=== PATIENT | male | born 1995 | race Caucasian/White ===

== ENCOUNTER 2025-01-11 00:31 | Emergency (ER) | payer MEDICAID, SELFPAY ==
--- NOTE | ~2025-01-11 | XR_ITS ---
Portable chest x-ray Comparison: None Clinical History: Painful inspiration Findings: Lungs are clear, without focal consolidation or pleural effusion. Cardiomediastinal silho uette is unremarkable. Bones and soft tissues are unremarkable. Impression: Normal chest. Reviewed, dictated and finalized at location M. Impression: Normal chest.
[2025-01-11 00:37] VITALS: BP 131/95; PULSE 89; RESP 18; TEMP 35.9; O2SAT 99
--- NOTE | 2025-01-11 00:52 | ED_ITS ---
HPI - URI/Sore Throat General Chief Complaint: Upper Respiratory Infection Stated Complaint: uri Time Seen by Provider: 01/11/25 00:34 Source: patient Mode of arrival: ambulatory Limitations: no limitations History of Present Illness HPI Narrative: this is a 29-year-old male smoker presents with cough congestion slight last 2 weeks with no fever chills has been out of his albuterol inhaler. There is no chest pain no nausea vomiting no abdominal pain. MD elicited complaint: cough and nasal congestion Onset (ago): week(s) Review of Systems Review of Systems: All systems reviewed & are unremarkable except as noted in HPI and below PMFSH Past Medical History Medical History Asthma Exam Const: General: healthy appearing and no acute distress Nutritional Appearance: well nourished Orientation/consciousness: patient oriented x3 Limitations: no limitations HENMT: Head: normal to inspection Eyes: Conjunctivae: conjunctivae normal Pupils: Equal, round and reactive pupils present Chest: Chest palpation & inspection: normal inspection of the chest Resp: Effort & Inspection: normal respiratory effort Auscultation: clear to auscultation bilaterally Cardio: Rate: regular rate Rhythm: regular rhythm GI: GI Palp: Yes Soft to palpation Auscultation: normal bowel sounds Extrem: General: normal to inspection, no clubbing, cyanosis or edema and no pedal edema Course Course Emergency Course: chest x-ray performed and reviewed without any cardiopulmonary abnormalities COVID influenza and RSV also performed and reviewed with patient. Patient given a dose of Augmentin and prednisone. Vital Signs Vital signs: Vital Signs Temperature 35.9 C L 01/11/25 00:37 Pulse Rate 89 01/11/25 00:37 Respiratory Rate 18 01/11/25 00:37 Blood Pressure 131/95 H 01/11/25 00:37 Pulse Oximetry 99 01/11/25 00:37 Oxygen Delivery Room Air 01/11/25 00:37 Temperature 35.9 C L 01/11/25 00:37 Pulse Rate 89 01/11/25 00:37 Respiratory Rate 18 01/11/25 00:37 Blood Pressure 131/95 H 01/11/25 00:37 Pulse Oximetry 99 01/11/25 00:37 Oxygen Delivery Room Air 01/11/25 00:37 MDM - URI/Sore Throat Lab Data Labs: Lab Results 01/11/25 Range/Units 00:38 Influenza A (RT-PCR) Pending Influenza B (RT-PCR) Pending RSV (RT-PCR) Pending SARS-CoV-2 RNA (RT-PCR) Pending Critical Care Time Critical Care Time Critical Care Time: No Discharge Plan Discharge Clinical Impression: Bronchitis Patient Disposition: Home, Self-Care Condition: Stable Instructions: Antibiotic Form, Acute Bronchitis (ED) Additional Instructions: Advised patient to take medication as prescribed and follow-up with primary care physician if symptoms persist or worsen. Patient Language: Macedonian Prescriptions: New azithromycin [Zithromax Z-Holland] 250 mg tablet See Rx Instructions .ROUTE .COMPLEX Qty: 6 0RF Rx Instructions: For 250 mg dose pack: take 500 mg today (day 1), then 250 mg for 4 days (days 2-5) ProAir RespiClick 90 mcg/actuation aerosol powdr breath activated 2 inh inhalation QID PRN (Reason: shortness of breath) Qty: 1 0RF methylprednisolone [Medrol ([place])] 4 mg tablets,dose pack See Rx Instructions .ROUTE .COMPLEX Qty: 21 0RF Rx Instructions: for 6 days Follow-up/Referrals: Ahmet Davenport MD [Primary Care Provider] - Time of Disposition: 00:57
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
--- OUTSIDE RECORDS SUMMARY | 2025-01-11 00:52 | XMS_ITS | Encounter Summary ---
Author Organization [employer] Address [address] [place] [address] Care Team Providers Care Panel Fitter Name Role Phone Claudine Harris MD Primary Care Provider [phone] Encounter Details Date Type Department Care Team (Late st Contact Info) Description 04/09/2021 Transcribed Document [facility] [place] Family Medicine [facility] [place] [address] ProviderSivakumar MD [address] [place] [address] Social History Tobacco Use Types Packs/Day Years Used Date Smoking Tobacco: Never Assessed Sex and Gender Information Value Date Recorded Sex Assigned at Male 04/20/2022 8:52 PM CDT Legal Sex Male 8:52 PM CDT Gender Identity Male 04/20/2022 8:52 PM CDT Sexual Orientation Not on file documented as of this encounter Miscellaneous Notes * Cerner Conversion Note - Historical ProviderMD - 04/09/2021 4:18 PM CDT CR Scapula RT Ordered: 04/08/2021 Auth (Verified) Reason for Exam: pain 04/08/2021 21:41 CR Elbow Min 3 Vws RT Ordered: 04/08/2021 Auth (Verified) Reason for Exam: pain 04/08/2021 21:42 CR Shoulder Comp Min 2 Vws RT Ordered: 04/08/2021 Auth (Verified) Reason for Exam: pain 04/08/2021 21:41 04/09/2021 16:18 (CONOR MACIEL) No further action required Electronically signed by [facility] Conversion Clinical Applications Manager Cerner at 02/08/2023 9:03 PM CDT documented in this encounter Plan of Treatment Not on file documented as of this encounter Visit Diagnoses Not on filedocumented in this encounter Care Teams Panel Fitter Relationship Specialty Start Date End Date Claudine Harris MD [address] [place] [address] PCP - General Psychiatry 03/06/24 documented as of this encounter
--- OUTSIDE RECORDS SUMMARY | 2025-01-11 00:52 | XMS_ITS | Encounter Summary ---
Author Organization [employer] Address [address] [place] [address] Care Team Providers Care Service Order Dispatcher Name Role Phone Claudine Harris MD Primary Care Provider [phone] Encounter Details Date Type Department Care Team (Late st Contact Info) Description 09/25/2021 Transcribed Document [facility] [place] Family Medicine [address] [place] [address] ProviderSivakumar MD [address] [place] [address] Social History Tobacco Use Types [...] Conversion Note - Sivakumar ProviderMD - 09/25/2021 3:43 AM SCRUB WOMAN ED Assessment Entered On: 09/25/2021 4:14 EST Performed On: 09/25/2021 4:13 EST by Yu Méndez Rn ED General-Functional Assess Information Obtained From : Patient Communication Barrier : None Primary Language : Guyanese Any Spiritual/Cultural Needs or Requests : No Currently in Unsafe Situation : No Yu Méndez Rn - 09/25/2021 4:13 EST Social Habits Smoking Status : Other: unable to assess Smokeless Tobacco Status : Never Yu Méndez Rn - 09/25/2021 4:13 EST Social History (As Of: 09/25/2021 04:14:59 EST) Cardiovascular ASMT, ED Cardiovascular Assessment WDL : WDL with exceptions (Comment: pt c/o chest pain but refusing ekg and assessment [Yu Méndez Rn - 09/25/2021 4:13 EST] ) Yu Méndez Rn - 09/25/2021 4:13 EST Electronically signed by [facility] Conversion Intervention Specialist Cerner at 02/08/2023 9:11 PM CDT documented in this encounter Plan of Treatment Not on file documented as of this encounter Visit Diagnoses Not on filedocumented in this encounter Care Teams Service Order Dispatcher Relationship Specialty Start Date End Date Claudine Harris MD [address] [place] [address] PCP - General Psychiatry 03/06/24 documented as of this encounter
--- OUTSIDE RECORDS SUMMARY | 2025-01-11 00:52 | XMS_ITS | Encounter Summary ---
Author Organization [employer] Address [address] [place] [address] Care Team Providers Care Incinerator Plant General Supervisor Name Role Phone Claudine Harris MD Primary Care Provider [phone] Encounter Details Date Type Department Care Team (Late st Contact Info) Description 04/08/2021 Transcribed Document [facility] [place] Family Medicine [facility] [place] [address] ProviderSivakumar MD [address] [place] [address] Social History Tobacco Use Types [...] Conversion Note - Sivakumar ProviderMD - 04/08/2021 5:12 PM CDT ED Assessment Entered On: 04/08/2021 17:33 EDT Performed On: 04/08/2021 17:32 EDT by Julia Kinney RN ED Quick Look Assessment Level of Consciousness : Alert, Awake Affect/Behavior : Appropriate Orientation : Oriented x 4 Skin Temperature : Warm Skin Description : Normal for ethnicity Julia Kinney RN - 04/08/2021 17:32 EDT ED General-Functional Assess Information Obtained From : Patient Communication Barrier : None Primary Language : Stateless Any Spiritual/Cultural Needs or Requests : No Currently in Unsafe Situation : No Julia Kinney RN - 04/08/2021 17:32 EDT Social Habits Smoking Status : Never (less than 100 in lifetime; none in last 30 days) Smokeless Tobacco Status : Never Desires Tobacco Cessation Calc : 0 Julia Kinney RN - 04/08/2021 17:32 EDT Social History (As Of: 04/08/2021 17:33:04 EDT) Genitourinary Assessment, ED Genitourinary Assessment WDL : WDL with exceptions (Comment: left shoulder pain with full rom, no obvious deformity noted [Julia Kinney RN - 04/08/2021 17:32 EDT] ) Julia Kinney RN - 04/08/2021 17:32 EDT Electronically signed by [facility], [facility] Conversion Nutrition Services Assistant Cerner at 02/08/2023 9:31 PM CDT documented in this encounter Plan of Treatment Not on file documented as of this encounter Visit Diagnoses Not on filedocumented in this encounter Care Teams Incinerator Plant General Supervisor Relationship Specialty Start Date End Date Claudine Harris MD [facility] [place] [address] PCP - General Psychiatry 03/06/24 documented as of this encounter
--- OUTSIDE RECORDS SUMMARY | 2025-01-11 00:52 | XMS_ITS | Encounter Summary ---
Author Organization [employer] Address [address] [place] [address] Care Team Providers Care Coil Tier Name Role Phone Claudine Harris MD Primary Care Provider [phone] Encounter Details Date Type Department Care Team (Late st Contact Info) Description 04/09/2021 Transcribed Document [facility] [place] Family Medicine [facility] [place] [address] ProviderSivakumar MD [address] [place] [address] Social History Tobacco Use Types Packs/Day Years Used Date Smoking Tobacco: Never Assessed Sex and Gender Information Value Date Recorded Sex Assigned at Male 04/20/2022 8:52 PM CDT Legal Sex Male 8:52 PM CDT Gender Identity Male 04/20/2022 8:52 PM CDT Sexual Orientation Not on file documented as of this encounter Miscellaneous Notes * Cerner Conversion Note - Historical ProviderMD - 04/09/2021 8:23 PM CDT CR Scapula RT Ordered: 04/08/2021 Auth (Verified) Reason for Exam: pain 04/08/2021 21:41 CR Elbow Min 3 Vws RT Ordered: 04/08/2021 Auth (Verified) Reason for Exam: pain 04/08/2021 21:42 CR Shoulder Comp Min 2 Vws RT Ordered: 04/08/2021 Auth (Verified) Reason for Exam: pain 04/08/2021 21:41 04/09/2021 20:23 (WALTER BUENO PA) Reviewed by Provider, No further action required X1 - no acute 04/09/2021 16:18 (CONOR MACIEL) No further action required documented in this encounter Plan of Treatment Not on file documented as of this encounter Visit Diagnoses Not on filedocumented in this encounter Care Teams Coil Tier Relationship Specialty Start Date End Date Claudine Harris MD [address] [place] [address] PCP - General Psychiatry 03/06/24 documented as of this encounter
--- OUTSIDE RECORDS SUMMARY | 2025-01-11 00:52 | XMS_ITS | Encounter Summary ---
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 [place] [id number] MC SILVA :1995 Visit Time:09/25/2021 Your Visit Summary Your Care Team Primary Provider: EVIE HAYS Secondary Provider: Your Diagnosis Chest pain Chest pain Medical Information You may obtain a copy of your Emergency Department visit from Medical Records by calling the hospital phone number listed above and asking to be directed to the Medical Records Department. If you had special tests, such as EKG???s or X-rays, the interpretation of your tests given to you by the Emergency Department Physician is a preliminary report. Some fractures and illnesses fail to show up on preliminary tests. These will be reviewed again and we will call you if there are any new suggestions. If your symptoms continue notify your physician. After you leave, you should follow the instructions provided. What to do next Follow-Up Appointments Follow Up with [facility] When Within 2 to 3 days Allergies Haldol Xanax lithium Immunizations This Visit No Immunizations Found Medications The home medications listed are only as accurate as the information you provided. Please continue taking all of your medications prescribed by your Primary Care Provider unless specifically told to change or discontinue the medication. Please direct any questions regarding your home medications to your Primary Care Provider. Take your medications faithfully. Do NOT skip medication. Do NOT stop taking medications without the direction of a physician. Carry a list of your medications with you at all times, and take this medication list with you to your first follow up visit. Report any side effects. Avoid herbal remedies unless discussed with your physician. As part of your treatment plan, your physician may have prescribed a limited course of a controlled substance. This medication may be given to help people with moderate or severe pain or for other medical conditions, but there are risks involved with treatment. Common side effects may include nausea, constipation, drowsiness, sweating, itching, dry mouth, and rash. More serious side effects may include cognitive and motor impairment, like problems with thinking, concentrating, alertness, and movement (e.g. slowed reflexes), and driving and operating heavy machinery can be dangerous. It is important for you to talk to your physician if you have these side effects or questions. These controlled substances can produce physical dependence and be habit-forming if taken for an extended period of time, which means that the body has gotten used to them and may experience withdrawal symptoms if they are abruptly stopped. Withdrawal symptoms can include runny nose, sweating, goose bumps, diarrhea, abdominal cramping, rapid heartbeat, difficulty sleeping, and nervousness. Please dispose of unused and medications per pharmacy guidance. Test Results Laboratory or Other Results This Visit (last charted value for your 09/25/2021 visit) No Laboratory or Other Results This Visit Education Materials Alcohol Intoxication Mc Silva is cleared for residential custody or incarceration. He is medically cleared Alcohol intoxication occurs when a person no longer thinks clearly or functions well (becomes impaired) after drinking alcohol. Intoxication can occur with just one drink. The legal definition of alcohol intoxication depends on the amount of alcohol in the blood (blood alcohol concentration, LUCINDA). LUCINDA of 80???100 mg/dL or higher is commonly considered legally intoxicated. The level of impairment depends on: ??? The amount of alcohol the person had. ??? The person's age, gender, and weight. ??? How often the person drinks. ??? Whether the person has other medical conditions, such as diabetes, seizures, or a heart condition. Alcohol intoxication can range from mild to severe. The condition can be dangerous, especially if the person: ??? Also took certain drugs or prescription medicines. ??? Drinks a large amount of alcohol in a short period of time (binge drinks). ? For women, binge drinking is having four or more drinks at one time. ? For men, binge drinking is having five or more drinks at one time. If you or anyone around you appears intoxicated, speak up and act. What are the causes? This condition is caused by drinking alcohol. What increases the risk? The following factors may make you more likely to develop this condition: ??? Peer pressure in young adults. ??? Difficulty managing stress. ??? History of drug or alcohol abuse. ??? Combining alcohol with drugs. ??? Family history of drug or alcohol abuse. ??? Low body weight. ??? Binge drinking. What are the signs or symptoms? Symptoms of alcohol intoxication can vary from person to person. Symptoms can be mild, moderate, or severe. Symptoms of mild alcohol intoxication may include: ??? Feeling relaxed or sleepy. ??? Having mild difficulty with coordination, speech, memory, or attention. Symptoms of moderate alcohol intoxication may include: ??? Extreme emotions, like anger or sadness. ??? Moderate difficulty with coordination, speech, memory, or attention. Symptoms of severe alcohol intoxication may include: ??? Severe difficulty with coordination, speech, memory, or attention. ??? Passing out. ??? Vomiting. ??? Confusion. ??? Slow breathing. ??? Coma. Intoxication can change quickly from mild to severe. It can cause coma or , especially in people who are not exposed to alcohol often. How is this diagnosed? Your health care provider will ask you how much alcohol you drank and what kind you had. Intoxication may also be diagnosed based on: ??? Your symptoms and medical history. ??? A physical exam. ??? A blood test that measures LUCINDA. ??? A smell of alcohol on your breath. How is this treated? Treatment for alcohol intoxication may include: ??? Being monitored in an emergency department, hospital, or treatment center until your LUCINDA comes down and it is safe for you to go home. ??? IV fluids to prevent or treat loss of fluid in the body (dehydration). ??? Medicine to treat nausea or vomiting or to get rid of alcohol in the body. ??? Counseling (brief intervention) about the dangers of using alcohol. ??? Treatment for substance use disorder. ??? Oxygen therapy or a breathing machine (ventilator). Long-term (chronic) exposure to alcohol can have long-term effects on your brain, heart, and gastrointestinal system. These effects can be serious and may also require treatment. Follow these instructions at home: Eating and drinking ??? Do not drink alcohol if: ? Your health care provider tells you not to drink. ? You are , may be , or are planning to become . ? You are under the legal drinking age (21 years old in the [place] ? You are taking medicines that should not be taken with alcohol. ? You have a medical condition, and alcohol makes it worse. ? You need to drive or perform activities that require you to be alert. ? You have substance use disorder. ??? Ask your health care provider if alcohol is safe for you. If your health care provider allows you to drink alcohol, limit how much you have. You may drink: ? 0???1 drink a day for women. ? 0???2 drinks a day for men. ? Be aware of how much alcohol is in your drink. In the [place] one drink equals one 12 oz bottle of beer (355 mL), one 5 oz glass of wine (148 mL), or one 1?? oz shot of hard liquor (44 mL). ??? Avoid drinking alcohol on an empty stomach. ??? Stay hydrated. Drink enough fluid to keep your urine pale yellow. Avoid caffeine because it can dehydrate you. ??? Avoid drinking more than one drink per hour. ??? When having multiple drinks, drink water or a non-alcoholic beverage between alcoholic drinks. General instructions ??? Take tylt-qrd-wrcdwzs and prescription medicines only as told by your health care provider. ??? Do not drive after drinking any amount of alcohol. Plan for a designated truck driver salesperson or another way to go home. ??? Have someone responsible stay with you while you are intoxicated. You should not be left alone. ??? Keep all follow-up visits as told by your health care provider. This is important. Contact a health care provider if: ??? You do not feel better after a few days. ??? You have problems at work, at school, or at home due to drinking. Get help right away if: ??? You have any of the following: ? Moderate to severe trouble with coordination, speech, memory, or attention. ? Trouble staying awake. ? Severe confusion. ? A seizure. ? Light-headedness. ? Fainting. ? Vomiting bright red blood or material that looks like coffee grounds. ? Bloody stool (feces). The blood may make your stool bright red, black, or tarry. It may also smell bad. ? Shakiness when trying to stop drinking. ? Thoughts about hurting yourself or others. If you ever feel like you may hurt yourself or others, or have thoughts about taking your own life, get help right away. You can go to your nearest emergency department or call: ??? Your local emergency services (911 in the [place] ??? A suicide crisis helpline, such as the National Suicide Prevention Lifeline at . This is open 24 hours a day. Summary ??? Alcohol intoxication occurs when a person no longer thinks clearly or functions well after drinking alcohol. ??? If your health care provider says that alcohol is safe for you, limit alcohol intake to no more than 1 drink a day for women (no drinks if you are ) and 2 drinks a day for men. One drink equals 12 oz of beer, 5 oz of wine, or 1?? oz of hard liquor. ??? Contact your health care provider if drinking has caused you problems at work, school, or home. ??? Get help right away if you have thoughts about hurting yourself or others. This information is not intended to replace advice given to you by your health care provider. Make sure you discuss any questions you have with your health care provider. Document Revised: 01/30/2019 Document Reviewed: 01/30/2019 [employer] Patient Education ?? 2020 [employer] Alcohol Intoxication Alcohol intoxication happens when you cannot think clearly or function well (get impaired) after drinking alcohol. This can happen after just one drink. The effect that alcohol has on how you think and function depends on: ??? How much alcohol you drank. ??? Your age, your weight, and whether you are a man or a woman. ??? How often you drink alcohol. ??? If you have other medical problems. Alcohol intoxication can range from mild to very bad. It can be dangerous, especially if you: ??? Drink a large amount of alcohol in a short time (binge drink). ? For women, binge drinking is having four or more drinks at one time. ? For men, binge drinking is having five or more drinks at one time. ??? Take certain drugs or medicines. If you or anyone around you seems intoxicated: ??? Tell someone. ??? Get help from someone. Follow these instructions at home: Eating and drinking ??? Ask your doctor if alcohol is safe for you. ? If your doctor says that alcohol is safe for you, limit how much you drink to no more than 1 drink a day for women who are not and 2 drinks a day for men. One drink equals one of these: ? 12 oz of beer. ? 5 oz of wine. ? 1?? oz of hard liquor. ? Do not drink alcohol if: ? Your doctor tells you not to drink. ? You are , may be , or are planning to get . ? You are under the legal drinking age (21 years old in the [place] ? You are taking medicines that you should not take with alcohol. ? Alcohol causes your medical problem to get worse. ? You have to drive or do activities that need you to be alert. ? You have substance use disorder. This is when using alcohol again and again causes problems with your health, your relationships, or with what you need to do at work, home, or school. ? Be sure to eat before you drink alcohol. Avoid drinking when you have an empty stomach. ? Make sure you have enough fluid in your body (stay hydrated). To do this: ? Drink enough fluid to keep your pee (urine) pale yellow. ? Avoid caffeine, which may be in coffee, tea, and some sodas. Caffeine can make you thirsty. ? Try not to drink more than one drink an hour. ? If you are having more than one drink, have a drink without alcohol (such as water) between your drinks. General instructions ??? Take yvwo-abc-qowcakt and prescription medicines only as told by your doctor. ??? Do not drive after drinking any amount of alcohol. Plan for a designated truck driver salesperson or another way to go home. ??? Have someone you trust stay with you while you are intoxicated. Youshould not be left alone. ??? Keep all follow-up visits as told by your doctor. This is important. Contact a doctor if: ??? You do not feel better after a few days. ??? You have problems at work, at school, or at home due to drinking. Get help right away if: ??? You have any of the following: ? Moderate or very bad trouble with: ? Movement (coordination). ? Talking. ? Memory. ? Paying attention to things. ? Trouble staying awake. ? Being very confused. ? Jerky movements that you cannot control (seizure). ? Light-headedness. ? Fainting. ? Throwing up (vomiting) blood. The blood may be bright red or look like coffee grounds. ? Blood in your poop (stool). The blood may: ? Be bright red. ? Make your poop black and tarry and make it smell bad. ? Feeling shaky when you try to stop drinking. ? Thoughts about hurting yourself or others. If you ever feel like you may hurt yourself or others, or have thoughts about taking your own life, get help right away. You can go to your nearest emergency department or call: ??? Your local emergency services (911 in the [place] ??? A suicide crisis helpline, such as the National Suicide Prevention Lifeline at . This is open 24 hours a day. Summary ??? Alcohol intoxication happens when you cannot think clearly or function well (get impaired) after drinking alcohol. This can happen after just one drink. ??? If your doctor says that alcohol is safe for you, limit how much you drink to no more than 1 drink a day for women who are not and 2 drinks a day for men. ??? Contact a doctor if you have problems at work, at school, or at home due to drinking. ??? Get help right away if you have thoughts about hurting yourself or others. This information is not intended to replace advice given to you by your health care provider. Make sure you discuss any questions you have with your health care provider. Document Revised: 03/12/2020 Document Reviewed: 01/30/2019 [employer] Patient Education ?? 2020 [employer]. Emergency Awareness and Preventative Care STROKE is an EMERGENCY Every Minute Counts Act FAST and Check for these signs: FACE Does the face look uneven? ARM Does one arm drift down? SPEECH Does their speech sound strange? TIME Call at any sign of stroke Stroke Risk Factors Atrial Fibrillation (irregular heartbeat) Diabetes Family history of stroke Heart Disease Heavy alcohol use High Blood Pressure High Cholesterol Physical inactivity and obesity Smoking Cigarette Smoking The facts are clear, cigarette smoking will shorten your life. Smoking can cause many illnesses along the way. As a healthcare provider, we recommend that you stop smoking. Assistance with quitting is available by contacting 9-633-POCB-NOW. This is a free resource providing counseling, support, and referral. Or you may contact your personal physician. National Suicide Prevention Lifeline: The National Suicide Prevention Lifeline is a national network of local crisis centers that provides free and confidential emotional support to people in suicidal crisis or emotional distress 24 hours a day, 7 days a week. Don't Wait! Stop a Heart Attack Before it Starts What is a heart attack? A heart attack is damage or to a part of the heart from severely decreased or lack of blood flow to the heart. Over time, arteries can become narrow from the buildup of fat and cholesterol, which is called plaque. The plaque can rupture causing a blood clot to form. When the blood clot forms, the artery can become severely narrowed or completely blocked, causing a heart attack. Heart attack is the leading cause of in the [place]. 85% of muscle damage occurs within the first 2 hours. Delay in the recognition of heart attack symptoms increases the chances of . Know the early symptoms of a heart attack: Nausea Feeling of fullness in chest Jaw Pain Pain that travels down one or both arms Fatigue/being tired Anxiety Back Pain Chest pressure, squeezing, or discomfort Shortness of breath Sweating, or a cold sweat Feeling of impending doom There are unusual signs of a heart attack, too! Women, the elderly, and diabetics may present with atypical symptoms: Fainting/dizziness Weakness Confusion Risk Factors for a Heart Attack Some heart disease risk factors, such as age and family history, cannot be changed. Others, like smoking and lack of exercise, can be changed. Smoking High Cholesterol High Blood Pressure Family History Obesity Age Gender (Males are at higher risk) Lack of Exercise Diabetes Diet Stress Excessive Alcohol Intake If you or someone you know is experiencing the signs and symptoms of a heart attack, DON???T DELAY. Call immediately and seek help. If someone collapses, perform CPR! Do not attempt to drive if you are having symptoms of heart attack. Hands-Only CPR Why Hands-Only CPR? Hands-Only CPR has been shown to be as effective as conventional CPR for cardiac arrests that occur outside of a hospital. Survival depends on immediately receiving CPR from someone nearby. How do you perform Hands-Only CPR? There are two easy steps: Call if you see a teen or adult collapse Push hard and fast in the center of the chest at a beat of 100 beats per minute. Save a life! 4 WAYS TO GET AHEAD OF SEPSIS SEPSIS is a MEDICAL EMERGENCY. Time matters! Infections put you and your family at risk for a life-threatening condition called sepsis. Sepsis is the body's extreme response to an infection. It is life-threatening, and without timely treatment, sepsis can rapidly lead to tissue damage, organ failure, and . Sepsis happens when an infection you already have-in your skin, lungs, urinary tract or somewhere else-triggers a chain reaction throughout your body. 1 PREVENT INFECTIONS Take good care of chronic conditions. Talk to your doctor about getting the recommended vaccines. 2 PRACTICE GOOD HYGIENE Wash your hands frequently. Keep cuts or open sores clean and covered until they are healed. 3 KNOW THE SYMPTOMS Confusion or disorientation Shortness of breath High heart rate Fever, shivering, or feeling very cold Extreme pain or discomfort Clammy or sweaty skin 4 ACT FAST Get medical care IMMEDIATELY if you suspect sepsis or if you have an infection that is not getting better or is getting worse. To learn more about sepsis and how to prevent infections, visit www.cdc.gov/sepsis. The examination and treatment you have received in the Emergency Department has been done to provide an appropriate evaluation and stabilizing treatment on an emergency basis only. Given the limited resources, it is not meant to be a substitute for complete medical care. The follow-up doctor you named will receive a copy of your records and all test reports. IT IS IMPORTANT THAT YOU SCHEDULE A FOLLOW-UP APPOINTMENT AND ARE RE-EVALUATED. You should report any new complaints, symptoms, or remaining problems at that time. IT IS IMPOSSIBLE FOR THE EMERGENCY DEPARTMENT TO RECOGNIZE AND TREAT ALL ELEMENTS OF INJURY OR ILLNESS IN A SINGLE VISIT. If you have been referred to a specialist physician, it means that we believe you may have a condition that requires the expertise of a specialist. These physicians work in partnership with the hospital and have agreed to see referred patients in their office for further evaluation. KEEP IN MIND THAT THE SPECIALIST HAS HIS/HER OWN OFFICE POLICIES WHICH MAY REQUIRE PROPER INSURANCE OR PAYMENT UP FRONT BEFORE THE SPECIALIST WILL SEE YOU. It is your responsibility to call the specialist physician to make an appointment. We do not have the ability to refer patients to specialists/physicians that work with specific insurance companies. Please be advised that all financial charges or billing practices are determined by that practice, not the hospital. If your insurance company requires that you see a specialist from their approved list, it is your responsibility to contact your insurance company to make those arrangements. It is also your responsibility to follow any other requirements of your insurance company necessary to obtain coverage for claims submitted. We will bill your insurance; however, you are responsible today for any co-pay amounts. You will receive a separate bill for any services you may have received including: emergency, radiology, or pathology physicians. Patient Name:MC SILVA I have received this information and was given the opportunity to ask questions. Patient/Monologist Name: Patient/Monologist Signature: Relationship to Patient: Clinician/Hospital Monologist Signature: Please Provide a Telephone Number Where You Can Be Reached: Is it Permissible To Leave a Message? Date: Electronically signed by Krystal, [facility] Conversion Wax Molder Cerner at 02/08/2023 9:04 PM CDT documented in this encounter Plan of Treatment Not on file documented as of this encounter Visit Diagnoses Not on filedocumented in this encounter Care Teams Kitchen Chef Relationship Specialty Start Date End Date Claudine Harris MD [address] [id number] PCP - General Psychiatry 03/06/24 documented as of this encounter
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
--- OUTSIDE RECORDS SUMMARY | 2025-01-11 00:52 | XMS_ITS | Encounter Summary ---
Author Organization [facility] Address [address] [place] [address] Care Team Providers Care Mercury Washer Name Role Phone Claudine Harris MD Primary Care Provider [phone] Encounter Details Date Type Department Care Team (Late st Contact Info) Description 09/25/2021 Transcribed Document [facility] [place] [address] ProviderSivakumar MD [address] [place] [address] Social History Tobacco Use Types [...] - Sivakumar ProviderMD - 09/25/2021 3:43 AM REGISTERED DENTAL HYGIENIST Broset Violence Assessment Entered On: 09/25/2021 4:15 EST Performed On: 09/25/2021 4:15 EST by Yu Méndez Rn Broset Violence Assessment Broset Violence Checklist of Symptoms : Irritable, Boisterous, Physically threatening, Verbally threatening Broset Violence Symptoms Subtotal : 4 Broset Violence Symptoms Indicator : High risk (>2) Yu Méndez Rn - 09/25/2021 4:15 EST Electronically signed by Krystal [facility] Conversion Cylinder Loader Cerner at 02/08/2023 9:05 PM CDT documented in this encounter Plan of Treatment Not on file documented as of this encounter Visit Diagnoses Not on filedocumented in this encounter Care Teams Mercury Washer Relationship Specialty Start Date End Date Claudine Harris MD [facility] [place] [phone] PCP - General Psychiatry 03/06/24 documented as of this encounter
--- OUTSIDE RECORDS SUMMARY | 2025-01-11 00:52 | XMS_ITS | Encounter Summary ---
Author Organization [facility] [facility] Address [address] [place] [address] Care Team Providers Care Craniologist Name Role Phone Claudine Harris MD Primary Care Provider [phone] Encounter Details Date Type Department Care Team (Late st Contact Info) Description 04/08/2021 Transcribed Document [facility] [place] [address] ProviderSivakumar MD [address] [place] [address] Social History Tobacco Use Types Packs/Day Years Used Date Smoking Tobacco: Never Assessed Sex and Gender Information Value Date Recorded Sex Assigned at Male 04/20/2022 8:52 PM CDT Legal Sex Male 8:52 PM CDT Gender Identity Male 04/20/2022 8:52 PM CDT Sexual Orientation Not on file documented as of this encounter Miscellaneous Notes * Cerner Conversion Note - Sivakumar ProviderMD - 04/08/2021 7:06 PM CDT ED Discharge Entered On: 04/08/2021 19:06 EDT Performed On: 04/08/2021 19:06 EDT by Julia Kinney RN Discharge Process Patient Disposition : Discharge Personal Belongings With Patient : Yes Patient Education Completed : Yes Teaching Evaluation : Verbalizes understanding IV Discontinued : Not applicable Julia Kinney RN - 04/08/2021 19:06 EDT ED Discharge Discharge To : Home without planned follow-up Mode Of Departure : Ambulatory Accompanied By : Unaccompanied Discharge Instructions Reviewed With, Opportunity For Questions Given : Patient Prescriptions Given to Patient : No Julia Kinney RN - 04/08/2021 19:06 EDT Electronically signed by Krystal [facility] Conversion Insulation And Flooring Assembler Cerner at 02/08/2023 9:28 PM CDT documented in this encounter Plan of Treatment Not on file documented as of this encounter Visit Diagnoses Not on filedocumented in this encounter Care Teams Craniologist Relationship Specialty Start Date End Date Claudine Harris MD [address] [place] [phone] PCP - General Psychiatry 03/06/24 documented as of this encounter
--- OUTSIDE RECORDS SUMMARY | 2025-01-11 00:52 | XMS_ITS | Encounter Summary ---
Author Organization [employer] Address [address] [place] [address] Care Team Providers Care Shipping Associate Name Role Phone Claudine Harris MD Primary Care Provider [phone] Encounter Details Date Type Department Care Team (Late st Contact Info) Description 04/08/2021 Transcribed Document [facility] [place] Family Medicine [facility] [place] [address] ProviderSivakumar MD [address] [place] [address] Social History Tobacco Use Types Packs/Day Years Used Date Smoking Tobacco: Never Assessed Sex and Gender Information Value Date Recorded Sex Assigned at Male 04/20/2022 8:52 PM CDT Legal Sex Male 8:52 PM CDT Gender Identity Male 04/20/2022 8:52 PM CDT Sexual Orientation Not on file documented as of this encounter Miscellaneous Notes * Cerner Conversion Note - Sivakumar ProviderMD - 04/08/2021 7:03 PM CDT [facility] [address] [place] [id number] [facility] SILVA :1995 Visit Time:04/08/2021 Your Visit Summary Your Care Team Primary Provider: NADIA TELLEZ Secondary Provider: Your Diagnosis Abrasion Shoulder pain-swelling Sprain of right shoulder Medical Information You may obtain a copy [...] do next Follow-Up Appointments Follow Up with Return to Emergency Department When Within As needed Comments use polysporin to abrasions and keep clean. follow up with ortho if no improvement in shoulder Follow Up with NORMAN ANDERSON When Within 1 to 2 weeks Where: [facility] [place] [id number] Business (1) Follow Up with NO [facility] DR SWAN [...] This Visit (last charted value for your 04/08/2021 visit) No Laboratory or Other Results This Visit Education Materials Shoulder Pain Many things can cause shoulder pain, including: ??? An injury to the shoulder. ??? Overuse of the shoulder. ??? Arthritis. The source of the pain can be: ??? Inflammation. ??? An injury to the shoulder joint. ??? An injury to a tendon, ligament, or bone. Follow these instructions at home: Pay attention to changes in your symptoms. Let your health care provider know about them. Follow these instructions to relieve your pain. If you have a sling: ??? Wear the sling as told by your health care provider. Remove it only as told by your health care provider. ??? Loosen the sling if your fingers tingle, become numb, or turn cold and blue. ??? Keep the sling clean. ??? If the sling is not waterproof: ? Do not let it get wet. Remove it to shower or bathe. ??? Move your arm as little as possible, but keep your hand moving to prevent swelling. Managing pain, stiffness, and swelling ??? If directed, put ice on the painful area: ? Put ice in a plastic bag. ? Place a towel between your skin and the bag. ? Leave the ice on for 20 minutes, 2???3 times per day. Stop applying ice if it does not help with the pain. ??? Squeeze a soft ball or a foam pad as much as possible. This helps to keep the shoulder from swelling. It also helps to strengthen the arm. General instructions ??? Take tnvv-dkb-gmwzuqn and prescription medicines only as told by your health care provider. ??? Keep all follow-up visits as told by your health care provider. This is important. Contact a health care provider if: ??? Your pain gets worse. ??? Your pain is not relieved with medicines. ??? New pain develops in your arm, hand, or fingers. Get help right away if: ??? Your arm, hand, or fingers: ? Tingle. ? Become numb. ? Become swollen. ? Become painful. ? Turn white or blue. Summary ??? Shoulder pain can be caused by an injury, overuse, or arthritis. ??? Pay attention to changes in your symptoms. Let your health care provider know about them. ??? This condition may be treated with a sling, ice, and pain medicines. ??? Contact your health care provider if the pain gets worse or new pain develops. Get help right away if your arm, hand, or fingers tingle or become numb, swollen, or painful. ??? Keep all follow-up visits as told by your health care provider. This is important. This information is not intended to replace advice given to you by your health care provider. Make sure you discuss any questions you have with your health care provider. Document Revised: 04/24/2019 Document Reviewed: 04/24/2019 [employer] Patient Education ?? 2020 GPal. Abrasion An abrasion is a cut or a scrape on the outer surface of the skin. An abrasion does not go through all the layers of the skin. It is important to care for your abrasion properly to prevent infection. What are the causes? This condition is caused by falling on or gliding across the ground or another surface. When your skin rubs on something, the outer and inner layers of skin may rub off. What are the signs or symptoms? The main symptom of this condition is a cut or a scrape. The scrape may be bleeding, or it may appear red or pink. If the abrasion was caused by a fall, there may be a bruise under the cut or scrape. How is this diagnosed? An abrasion is diagnosed with a physical exam. How is this treated? Treatment for this condition depends on how large and deep the abrasion is. In most cases: ??? Your abrasion will be cleaned with water and mild soap. This is done to remove any dirt or debris (such as particles of glass or rock) that may be stuck in the wound. ??? An antibiotic ointment may be applied to the abrasion to help prevent infection. ??? A bandage (dressing) may be placed on the abrasion to keep it clean. You may also need a tetanus shot. Follow these instructions at home: Medicines ??? Take or apply ycyb-hyb-rxhphfg and prescription medicines only as told by your health care provider. ??? If you were prescribed an antibiotic medicine, apply it as told by your health care provider. Wound care ??? Clean the wound 2???3 times a day, or as directed by your health care provider. To do this, wash the wound with mild soap and water, rinse off the soap, and pat the wound dry with a clean towel. Do not rub the wound. ??? Keep the dressing clean and dry as told by your health care provider. ??? There are many different ways to close and cover a wound. Follow instructions from your health care provider about: ? Caring for your wound. ? Changing and removing your dressing. You may have to change your dressing one or more times a day, or as directed by your health care provider. ??? Check your wound every day for signs of infection. Check for: ? Redness, particularly a red streak that spreads out from the wound. ? Swelling or increased pain. ? Warmth. ? Fluid, pus, or a bad smell. ??? If directed, put ice on the injured area to reduce pain and swelling: ? Put ice in a plastic bag. ? Place a towel between your skin and the bag. ? Leave the ice on for 20 minutes, 2???3 times a day. General instructions ??? Do not take baths, swim, or use a hot tub until your health care provider says it is okay to do so. ??? If possible, raise (elevate) the injured area above the level of your heart while you are sitting or lying down. This will reduce pain and swelling. ??? Keep all follow-up visits as directed by your health care provider. This is important. Contact a health care provider if: ??? You received a tetanus shot, and you have swelling, severe pain, redness, or bleeding at the injection site. ??? Your pain is not controlled with medicine. ??? You have redness, swelling, or more pain at the site of your wound. Get help right away if: ??? You have a red streak spreading away from your wound. ??? You have a fever. ??? You have fluid, blood, or pus coming from your wound. ??? You notice a bad smell coming from your wound or your dressing. Summary ??? An abrasion is a cut or a scrape on the outer surface of the skin. An abrasion does not go through all the layers of the skin. ??? Care for your abrasion properly to prevent infection. ??? Clean the wound with mild soap and water 2???3 times a day. Follow instructions from your health care provider about taking medicines and changing your bandage (dressing). ??? Contact your health care provider if you have redness, swelling or more pain in the wound area. ??? Get help right away if you have a fever or if you have fluid, blood, pus, a bad smell, or a red streak coming from the wound. This information is not intended to replace advice given to you by your health care provider. Make sure you discuss any questions you have with your health care provider. Document Revised: 09/22/2018 Document Reviewed: 05/24/2018 [employer] Patient Education ?? 2020 GPal. Shoulder Sprain A shoulder sprain is a partial or complete tear in one of the tough, fiber-like tissues (ligaments) in the shoulder. The ligaments in the shoulder help to hold the shoulder in place. What are the causes? This condition may be caused by: ??? A fall. ??? A hit to the shoulder. ??? A twist of the arm. What increases the risk? You are more likely to develop this condition if you: ??? Play sports. ??? Have problems with balance or coordination. What are the signs or symptoms? Symptoms of this condition include: ??? Pain when moving the shoulder. ??? Limited ability to move the shoulder. ??? Swelling and tenderness on top of the shoulder. ??? Warmth in the shoulder. ??? A change in the shape of the shoulder. ??? Redness or bruising on the shoulder. How is this diagnosed? This condition is diagnosed with: ??? A physical exam. During the exam, you may be asked to do simple exercises with your shoulder. ??? Imaging tests such as X-rays, MRI, or a CT scan. These tests can show how severe the sprain is. How is this treated? This condition may be treated with: ??? Rest. ??? Pain medicine. ??? Ice. ??? A sling or brace. This is used to keep the arm still while the shoulder is healing. ??? Physical therapy or rehabilitation exercises. These help to improve the range of motion and strength of the shoulder. ??? Surgery (rare). Surgery may be needed if the sprain caused a joint to become unstable. Surgery may also be needed to reduce pain. Some people may develop ongoing shoulder pain or lose some range of motion in the shoulder. However, most people do not develop long-term problems. Follow these instructions at home: If you have a sling or brace: ??? Wear the sling or brace as told by your health care provider. Remove it only as told by your health care provider. ??? Loosen the sling or brace if your fingers tingle, become numb, or turn cold and blue. ??? Keep the sling or brace clean. ??? If the sling or brace is not waterproof: ? Do not let it get wet. ? Cover it with a watertight covering when you take a bath or shower. Activity ??? Rest your shoulder. ??? Move your arm only as much as told by your health care provider, but move your hand and fingers often to prevent stiffness and swelling. ??? Return to your normal activities as told by your health care provider. Ask your health care provider what activities are safe for you. ??? Ask your health care provider when it is safe for you to drive if you have a sling or brace on your shoulder. ??? If you were shown how to do any exercises, do them as told by your health care provider. General instructions ??? If directed, put ice on the affected area. ? Put ice in a plastic bag. ? Place a towel between your skin and the bag. ? Leave the ice on for 20 minutes, 2???3 times a day. ??? Take vddf-sjg-gliehqr and prescription medicines only as told by your health care provider. ??? Do not use any products that contain nicotine or tobacco, such as cigarettes, e-cigarettes, and chewing tobacco. These can delay healing. If you need help quitting, ask your health care provider. ??? Keep all follow-up visits as told by your health care provider. This is important. Contact a health care provider if: ??? Your pain gets worse. ??? Your pain is not relieved with medicines. ??? You have increased redness or swelling. Get help right away if: ??? You have a fever. ??? You cannot move your arm or shoulder. ??? You develop severe numbness or tingling in your arm, hand, or fingers. ??? Your arm, hand, or fingers feel cold and turn blue, white, or don. Summary ??? A shoulder sprain is a partial or complete tear in one of the tough, fiber-like tissues (ligaments) in the shoulder. ??? This condition may be caused by a fall, a hit to the shoulder, or a twist of the arm. ??? Treatment usually includes rest, ice, and pain medicine as needed. ??? If you have a sling or brace, wear it as told by your health care provider. Remove it only as told by your health care provider. This information is not intended to replace advice given to you by your health care provider. Make sure you discuss any questions you have with your health care provider. Document Revised: 03/16/2019 Document Reviewed: 03/16/2019 [employer] Patient Education ?? 2020 GPal. Emergency Awareness and Preventative Care STROKE is [...] Assistance with quitting is available by contacting 8-822-KYBN-NOW. This is a free resource providing counseling, [...] including: emergency, radiology, or pathology physicians. Patient Name:[facility] I have received this information and was given the opportunity to ask questions. Patient/Manager File Name: Patient/Manager File Signature: Relationship to Patient: Clinician/Hospital Manager File Signature: Please Provide a Telephone Number Where You Can Be Reached: Is it Permissible To Leave a Message? Date: documented in this encounter Plan of Treatment Not on file documented as of this encounter Visit Diagnoses Not on filedocumented in this encounter Care Teams Shipping Associate Relationship Specialty Start Date End Date Claudine Harris MD [address] [phone] PCP - General Psychiatry 03/06/24 documented as of this encounter
--- OUTSIDE RECORDS SUMMARY | 2025-01-11 00:53 | XMS_ITS | Encounter Summary ---
Author Organization [employer] Address [address] [place] [address] Care Team Providers Care Sports Journalist Name Role Phone Claudine Harris MD Primary Care Provider Encounter Details Date Type Department Care Team (Late st Contact Info) Description 04/08/2021 Transcribed Document [facility] [place] Family [place] [facility] [place] [address] ProviderSivakumar MD [address] [place] [address] Social History Tobacco Use Types Packs/Day Years Used Date Smoking Tobacco: Never Assessed Sex and Gender Information Value Date Recorded Sex Assigned at Male 04/20/2022 8:52 PM CDT Legal Sex Male 8:52 PM CDT Gender Identity Male 04/20/2022 8:52 PM CDT Sexual Orientation Not on file documented as of this encounter Miscellaneous Notes * Cerner Conversion Note - Historical ProviderMD - 04/08/2021 6:18 PM CDT ED Event Note Entered On: 04/08/2021 18:18 EDT Performed On: 04/08/2021 18:18 EDT by Julia Kinney RN ED Event Note ED Event Date/Time : 04/08/2021 18:18 EDT ED Description of Event : patient requesting box lunch, cab ride home and something stronger for pain than ibuprofen and tylenol. provider notified. box lunch provided. will arrange transportation home once patient has been discharged. Julia Kinney RN - 04/08/2021 18:18 EDT Electronically signed by Krystal [facility] Conversion Ratoprinter Cerner at 02/08/2023 9:24 PM CDT documented in this encounter Plan of Treatment Not on file documented as of this encounter Visit Diagnoses Not on filedocumented in this encounter Care Teams Sports Journalist Relationship Specialty Start Date End Date Claudine Harris MD [address] [place] [phone] PCP - General Psychiatry 03/06/24 documented as of this encounter
--- OUTSIDE RECORDS SUMMARY | 2025-01-11 00:53 | XMS_ITS | Encounter Summary ---
Author Organization [employer] Address [address] [place] [address] Care Team Providers Care Ocean Export Account Manager Name Role Phone Claudine Harris MD Primary Care Provider Encounter Details Date Type Department Care Team (Late st Contact Info) Description 04/08/2021 Transcribed Document [facility] [place] [facility] [place] [address] ProviderSivakumar MD [address] [place] [address] Social History Tobacco Use Types Packs/Day Years Used Date Smoking Tobacco: Never Assessed Sex and Gender Information Value Date Recorded Sex Assigned at Male 04/20/2022 8:52 PM CDT Legal Sex Male 8:52 PM CDT Gender Identity Male 04/20/2022 8:52 PM CDT Sexual Orientation Not on file documented as of this encounter Miscellaneous Notes * Cerner Conversion Note - Historical ProviderMD - 04/08/2021 7:02 PM CDT Electronically signed by [facility] Conversion Physician Assistant Primary Care Cerner at 02/08/2023 9:16 PM CDT documented in this encounter Plan of Treatment Not on file documented as of this encounter Visit Diagnoses Not on filedocumented in this encounter Care Teams Ocean Export Account Manager Relationship Specialty Start Date End Date Claudine Harris MD [address] [place] [address] PCP - General Psychiatry 03/06/24 documented as of this encounter
--- OUTSIDE RECORDS SUMMARY | 2025-01-11 00:53 | XMS_ITS | Encounter Summary ---
Author Organization [employer] Address [address] [place] [address] Care Team Providers Care Hide Mill Man Name Role Phone Claudine Harris MD Primary Care Provider [phone] Encounter Details Date Type Department Care Team (Late st Contact Info) Description 09/25/2021 Transcribed Document [facility] [place] Family [place] [facility] [address] ProviderSivakumar MD [address] [place] [address] Social History Tobacco Use Types Packs/Day Years Used Date Smoking Tobacco: Never Assessed Sex and Gender Information Value Date Recorded Sex Assigned at Male 04/20/2022 8:52 PM CDT Legal Sex Male 8:52 PM CDT Gender Identity Male 04/20/2022 8:52 PM CDT Sexual Orientation Not on file documented as of this encounter Miscellaneous Notes * Cerner Conversion Note - Historical ProviderMD - 09/25/2021 3:43 AM OUTGOING INSPECTOR [place] Suicide Severity Rating Scale (C-SSRS) Entered On: 09/25/2021 4:15 EST Performed On: 09/25/2021 4:15 EST by Yu Méndez Rn [place] Suicide Severity Rating Scale (C-SSRS) CSSRS Past Month Wish to be : Unable to obtain CSSRS Past Month Suicidal Thoughts : Unable to obtain CSSRS Lifetime Suicide Behavior : Unable to obtain Suicide Severity Rating Score : -105 Suicide Severity Rating : Reassessment required Yu Méndez Rn - 09/25/2021 4:15 EST Electronically signed by Krystal [facility] Conversion Loading And Unloading Supervisor Cerner at 02/08/2023 9:11 PM CDT documented in this encounter Plan of Treatment Not on file documented as of this encounter Visit Diagnoses Not on filedocumented in this encounter Care Teams Hide Mill Man Relationship Specialty Start Date End Date Claudine Harris MD [address] [place] [phone] PCP - General Psychiatry 03/06/24 documented as of this encounter
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
--- OUTSIDE RECORDS SUMMARY | 2025-01-11 00:53 | XMS_ITS | Encounter Summary ---
Author Organization [employer] Address [address] [place] [address] Care Team Providers Care Chief Knowledge Officer Name Role Phone Claudine Harris MD Primary Care Provider [phone] Encounter Details Date Type Department Care Team (Late st Contact Info) Description 09/25/2021 Transcribed Document [facility] Family Medicine [facility] [place] [address] ProviderSivakumar MD [address] [place] [address] Social History Tobacco Use Types Packs/Day Years Used Date Smoking Tobacco: Never Assessed Sex and Gender Information Value Date Recorded Sex Assigned at Male 04/20/2022 8:52 PM CDT Legal Sex Male 8:52 PM CDT Gender Identity Male 04/20/2022 8:52 PM CDT Sexual Orientation Not on file documented as of this encounter Miscellaneous Notes * Cerner Conversion Note - Sivakumar ProviderMD - 09/25/2021 4:11 AM SHANK RANDER [address] [place] [address] PERSON INFORMATION Name MC SILVA Age 26 Years 1995 Sex Male Language Rwandan PCP JERAMIE SWAN DR Marital Status Single Med Service Emergency Medicine Acct# Arrival 09/25/2021 03:43:00 Visit Reason Chest pain; ETOH/CP Acuity LOS 000 00:28 Depart Date: 00:00 AM Address: [place] [address] Comment: PROVIDER INFORMATION Provider Role Assigned Unassigned EVIE HAYS DO ED Physician 09/25/2021 03:45:09 Vijaya Chauhan, HEALTH AND WELLNESS INSTRUCTOR Nurse 09/25/2021 03:45:55 DIAGNOSIS Alcohol intoxication; Chest pain PHYS DOC NOTES VITALS INFORMATION Vital Sign Triage Latest Temp Source Temp Mode Temp Fahrenheit Temp Celsius 02 Sat Respiratory Rate Peripheral Pulse Rate Apical Heart Rate Blood Pressure / / Comment: MEDICAL INFORMATION Allergy Info: Xanax; Haldol; lithium Medications: Comment: DISCHARGE INFORMATION Discharge Disposition: Discharge Location: PATIENT EDUCATION INFORMATION Instructions: Alcohol Intoxication; Alcohol Intoxication, [id number] Follow up: With: Address: When: NO PRIM DR SWAN Within 2 to 3 days Comment: Electronically signed by Krystal [facility] Conversion Paint Preparer Cerner at 02/08/2023 9:31 PM CDT documented in this encounter Plan of Treatment Not on file documented as of this encounter Visit Diagnoses Not on filedocumented in this encounter Care Teams Chief Knowledge Officer Relationship Specialty Start Date End Date Claudine Harris MD [address] [place] [id number] PCP - General Psychiatry 03/06/24 documented as of this encounter
--- OUTSIDE RECORDS SUMMARY | 2025-01-11 00:53 | XMS_ITS | Referral Summary ---
Author Organization [employer] Address [address] [place] [address] Care Team Providers Care Animal Ride Attendant Name Role Phone Claudine Harris MD Primary Care Provider [phone] Allergies Active Allergy Reactions Criticality Noted Date Comments Alprazolam Anaphylaxis High 09/05/2023 Droperidol Anaphylaxis High 09/05/2023 Haloperidol Anaphylaxis High 09/05/2023 [place] Anaphylaxis High 09/05/2023 Marijuana/Cannabinoid Anaphylaxis High 09/05/2023 Midazolam Anaphylaxis High 09/05/2023 Medications No known medications Social History Tobacco Use Types Packs/Day Years Used Date Smoking Tobacco: Unknown Tobacco Cessation:Counseling Given: Not Answered Alcohol Use Standard Drinks/Week Comments Not Currently 0 (1 standard drink = 0.6 oz pur e alcohol) Interpersonal Safety Answer Date Record ed Family or friends hurt you Not on file 11/05 Family or friends insult you Not on file Family or friends threaten you Not on file 0 11/05/2023 Family or friends scream or curse at you Not on file 11/05/2023 Housing Stability Answer Date Recorded Living situation today Not on file Living situation problems Not on file 2023 Food Insecurity Answer Date Recorded Food run out past 12 months Not on file 10/24 Food did not last past 12 months Not on file 11/05/2023 Employment Answer Date Recorded Help finding and keeping a job Not on file 0 11/05/2023 Family and Community Support Answer Sigifredo e Recorded Help with Day to Day Activities Not on file 11/05/2023 Feeling Lonely or Isolated Not on file 01/13 /2024 Educational Attainment Answer Date Robin rded Speak language other than Icelandic at home Not on file 11/05/2023 Want help with school or training Not on file 11/05/2023 Depression Answer Date Recorded PHQ-2 Risk Not on file 11/05/2023 Disabilities Answer Date Recorded Difficulty concentrating Not on file 024 Difficulty doing errands alone Not on file 0 11/05/2023 Substance Use Answer Date Recorded Used prescription meds for non-medical reasons N ot on file 11/05/2023 Used illegal drugs past 12 months Not on file 11/05/2023 Sex and Gender Information Value Date Recorded Sex Assigned at Male 04/20/2022 8:52 PM CDT Legal Sex Male 8:52 PM CDT Gender Identity Male 04/20/2022 8:52 PM CDT Sexual Orientation Not on file Last Filed Vital Signs Vital Sign Reading Time Taken Comments Blood Pressure 122/88 03/06/2024 3:51 PM EDT Pulse 87 03/06/2024 3:51 PM EDT Temperature 36.7 C (98 F) 03/06/2024 2:47 PM EDT Respiratory Rate 20 03/06/2024 3:51 PM EDT Oxygen Saturation 98% 03/06/2024 3:51 PM EDT Inhaled Oxygen Concentration - - Weight 86.2 kg (190 lb) 03/06/2024 2:47 PM EDT Height 167.6 cm (5' 6 ) 03/06/2024 2:47 PM EDT Body Mass Index 30.67 03/06/2024 2:47 PM EDT Plan of Treatment Not on file Insurance [facility] Care Teams Animal Ride Attendant Relationship Specialty Start Date End Date Claudine Harris MD [address] [place] [address] PCP - General Psychiatry 03/06/24
--- OUTSIDE RECORDS SUMMARY | 2025-01-11 00:53 | XMS_ITS | Clinical Summary ---
Author Organization [employer] Address [address] [place] [address] Care Team Providers Care Lining Inserter Name Role Phone Claudine Harris MD Primary Care Provider [phone] Allergies Active Allergy Reactions Criticality Noted Date Comments Alprazolam Anaphylaxis High 09/05/2023 Droperidol Anaphylaxis High 09/05/2023 Haloperidol Anaphylaxis High 09/05/2023 [place] Anaphylaxis High 09/05/2023 Marijuana/Cannabinoid Anaphylaxis High 09/05/2023 [...] Date Robin rded Speak language other than Romansh at home Not on file 11/05/2023 Want [...] 03/06/2024 2:47 PM EDT Plan of Treatment Health Maintenance Due Date Last Done Comments Depression Screening (12+) 2006 HIV Screening 2009 Hepatitis C Screening 2012 Lipid Panel 2014 COVID-19 VACCINE (2 - 2023-2 5 season) 2024 09/22/2021 Influenza Vaccine (#1) 2024 Tobacco Cessation Counseling and Screening (12+) 09/05/2024 09/05/2023 DTAP/TDAP/TD VACCINES (4 - T d or Tdap) 07/09/2032 07/09/2022, 10/09/2021, 04/28/2012 Insurance [facility] Care Teams Lining Inserter Relationship Specialty Start Date End Date Claudine Harris MD [address] [place] [address] PCP - General Psychiatry 03/06/24
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
--- OUTSIDE RECORDS SUMMARY | 2025-01-11 00:53 | XMS_ITS | Encounter Summary ---
Author Organization [employer] Address [address] [place] [address] Care Team Providers Care Center Sales And Service Associate Name Role Phone Claudine Harris MD Primary Care Provider [phone] Encounter Details Date Type Department Care Team (Late st Contact Info) Description 04/08/2021 Transcribed Document [facility] [place] [address] ProviderSivakumar MD [address] [place] [address] Social History Tobacco Use Types [...] Sivakumar ProviderMD - 04/08/2021 5:12 PM CDT Broset Violence Assessment Entered On: 04/08/2021 17:33 EDT Performed On: 04/08/2021 17:32 EDT by Julia Kinney RN Broset Violence Assessment Broset Violence Checklist of Symptoms : None Broset Violence Symptoms Subtotal : 0 Broset Violence Symptoms Indicator : Low risk (0) Julia Kinney RN - 04/08/2021 17:32 EDT Electronically signed by Krystal [facility] Conversion Business Specialist Cerner at 02/08/2023 9:07 PM CDT documented in this encounter Plan of Treatment Not on file documented as of this encounter Visit Diagnoses Not on filedocumented in this encounter Care Teams Center Sales And Service Associate Relationship Specialty Start Date End Date Claudine Harris MD [address] [place] [address] PCP - General Psychiatry 03/06/24 documented as of this encounter
--- OUTSIDE RECORDS SUMMARY | 2025-01-11 00:53 | XMS_ITS | Encounter Summary ---
Author Organization [employer] Address [address] [place] [address] Care Team Providers Care Salesperson Pets And Pet Supplies Name Role Phone Claudine Harris MD Primary Care Provider [phone] Encounter Details Date Type Department Care Team (Late st Contact Info) Description 09/25/2021 Transcribed Document [facility] [place] [facility] [place] [address] ProviderSivakumar MD [address] [place], [place] [id number] Social History Tobacco Use Types Packs/Day Years Used Date Smoking Tobacco: Never Assessed Sex and Gender Information Value Date Recorded Sex Assigned at Male 04/20/2022 8:52 PM CDT Legal Sex Male 8:52 PM CDT Gender Identity Male 04/20/2022 8:52 PM CDT Sexual Orientation Not on file documented as of this encounter Miscellaneous Notes * Cerner Conversion Note - Sivakumar ProviderMD - 09/25/2021 4:38 AM DIGITAL MEDIA DIRECTOR ED Discharge Entered On: 09/25/2021 4:39 EST Performed On: 09/25/2021 4:38 EST by Yu Méndez Sql Ssis Developer Process Patient Disposition : Discharge Personal Belongings With Patient : Yes IV Discontinued : Not applicable Nursing Documentation Completed : Yes Yu Méndez Rn - 09/25/2021 4:38 EST ED Discharge Discharge To : Law Enforcement Mode Of Departure : Law Enforcement Accompanied By : property portfolio officer Discharge Instructions Reviewed With, Opportunity For Questions Given : Other: law enforcement Prescriptions Given to Patient : No Yu Méndez Rn - 09/25/2021 4:38 EST Electronically signed by [facility] Conversion Flat Optical Element Maker Cerner at 02/08/2023 9:19 PM CDT documented in this encounter Plan of Treatment Not on file documented as of this encounter Visit Diagnoses Not on filedocumented in this encounter Care Teams Salesperson Pets And Pet Supplies Relationship Specialty Start Date End Date Claudine Harris MD [address] [place] [address] PCP - General Psychiatry 03/06/24 documented as of this encounter
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
--- OUTSIDE RECORDS SUMMARY | 2025-01-11 00:53 | XMS_ITS | Clinical Summary ---
Author Organization [facility] Address [address] [place] [address] Phone Care Team Providers Care Kitchenwhere Maker Name Role Phone Isidar Kinney APRN Primary Care Provider [phone] Allergies Active Allergy Reactions Criticality Noted Date Comments Haloperidol Anaphylaxis 12/28/2021 [place] Anaphylaxis 12/28/2021 Alprazolam Anaphylaxis 12/28/2021 Social History Tobacco Use Types Packs/Day Years Used Date Smoking Tobacco: Never Assessed Sex and Gender Information Value Date Recorded Sex Assigned at Not on file Legal Sex Male 12:33 PM ENDLESS BELT FINISHER Gender Identity Not on file Sexual Orientation Not on file Last Filed Vital Signs Vital Sign Reading Time Taken Comments Blood Pressure 138/78 12/28/2021 12:41 PM ENDLESS BELT FINISHER Pulse 92 12/28/2021 12:41 PM ENDLESS BELT FINISHER Temperature 36.9 C (98.5 F) 12/28/2021 12:41 PM ENDLESS BELT FINISHER Respiratory Rate 16 12/28/2021 12:41 PM ENDLESS BELT FINISHER Oxygen Saturation 95% 12/28/2021 12:41 PM ENDLESS BELT FINISHER Inhaled Oxygen Concentration - - Weight 81.6 kg (180 lb) 12/28/2021 12:41 PM ENDLESS BELT FINISHER Height 167.6 cm (5' 6 ) 12/28/2021 12:41 PM ENDLESS BELT FINISHER Body Mass Index 29.05 12/28/2021 12:41 PM ENDLESS BELT FINISHER Plan of Treatment Health Maintenance Due Date Last Done Comments Hepatitis C Virus (HCV) Screening 1994 Hepatitis B Immunization (1 of 3 - 19+ 3-dose series) 2013 Influenza Immunization (#1) 2024 SARS-COV-2 Immunization ( season) 2024 09/22/2021 Respiratory Syncytial Virus (RSV) Immunization (Adult) (1 - 1-dose 75+ series) 2069 DTaP/Tdap/Td Immunization Discontinued 10/09/2021 TdaP Immunization Completed 10/09/2021 Meningococcal Immunization (ACWY) Aged Out No longer eligible based on patient's age to complete this topic Pneumococcal Immunization Combined Aged Out No longer eligible b ased on patient's age to complete this topic Rotavirus Immunization Aged Out No lo nger eligible based on patient's age to complete this topic Insurance MEDICAID [place] Care Teams Kitchenwhere Maker Relationship Specialty Start Date End Date Isidra Kinney APRN [address] [facility] [address] [place], [place] [id number] PCP - General 12/28/21
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
--- OUTSIDE RECORDS SUMMARY | 2025-01-11 00:53 | XMS_ITS | Encounter Summary ---
Author Organization [employer] Address [address] [place] [address] Care Team Providers Care Hospice Superintendent Name Role Phone Claudine Harris MD Primary Care Provider [phone] Encounter Details Date Type Department Care Team (Late st Contact Info) Description 09/25/2021 Transcribed Document [facility] [place] [facility] [place] [address] ProviderSivakumar MD [address] [place] [address] Social History Tobacco Use Types Packs/Day Years Used Date Smoking Tobacco: Never Assessed Sex and Gender Information Value Date Recorded Sex Assigned at Male 04/20/2022 8:52 PM CDT Legal Sex Male 8:52 PM CDT Gender Identity Male 04/20/2022 8:52 PM CDT Sexual Orientation Not on file documented as of this encounter Miscellaneous Notes * Cerner Conversion Note - Sivakumar ProviderMD - 09/25/2021 4:07 AM FREIGHT SHIPPING AGENT Electronically signed by [facility] Conversion Professor Of Geography Cerner at 02/08/2023 9:29 PM CDT documented in this encounter Plan of Treatment Not on file documented as of this encounter Visit Diagnoses Not on filedocumented in this encounter Care Teams Hospice Superintendent Relationship Specialty Start Date End Date Claudine Harris MD [address] [place] [phone] PCP - General Psychiatry 03/06/24 documented as of this encounter
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
--- OUTSIDE RECORDS SUMMARY | 2025-01-11 00:53 | XMS_ITS | Encounter Summary ---
Author Organization Healthcare Address [address] [place] [address] Care Team Providers Care Mh Teacher Name Role Phone Pcp, No Primary Care Provider Unavailabl e Pcp, No Primary Care Provider Unavailabl e Pcp, No Unavailable Unavailable Belia Abebe APRN, DNP Primary Care Provide r Kenton Phillips Unavailable Unavailable Henriquez, Triton E Unavailable Unavailable Jaiden Smith DMD Unavailable [phone] Unavailable Unavailable Yissel Kendrick HIDE SALTER Unavailable [phone] Claudine Harris MD Primary Care Provider [phone] Encounter Details Date Type Department Care Team (Late st Contact Info) Description 08/19/2021 Lab Requisition [facility] [address] [place] [address] Social History Tobacco Use Types Packs/Day Years Used Date Smoking Tobacco: Every Day Cigarettes Smokeless Tobacco: Never Alcohol Use Standard Drinks/Week Comments Yes 0 (1 standard drink = 0.6 oz pur e alcohol) daily Sex and Gender Information Value Date Recorded Sex Assigned at Male 01/09/2023 3:49 PM EDT Legal Sex Male 1:09 PM EDT Gender Identity Male 01/09/2023 3:49 PM EDT Sexual Orientation Straight 01/09/2023 3: 49 PM EDT COVID-19 Exposure Response Date Recorded In the last month, have you been in contact with someone who was confirmed or suspected to have Coronavirus / COVID-19? No / Unsure 08/17/2021 4:15 AM EDT documented as of this encounter Plan of Treatment Not on file documented as of this encounter Goals Goal Patient Goal Type Associated Problems Recent Progress Patient-Stated? Author Patient will have a Dash scoure less than 50% Physcial Therapy No Munir Meier Note: 4 weeks Patient will have no more than 3/10 right shoulder pain Physcial Therapy No Munir Meier Note: 4 weeks Patient will have 5/5 MMT right shoulder Physcial Therapy No Munir Meier Note: 4 weeks documented as of this encounter Visit Diagnoses Not on filedocumented in this encounter Additional Health Concerns Infection Onset Date Last Indicated Resolved Time COVID-19 Rule-Out 09/14/2021 09/14/2021 09/22/2021 5:50 AM EST COVID-19 Rule-Out 09/03/2023 09/03/2023 09/03/2023 11:03 AM EST documented as of this encounter Care Teams Mh Teacher Relationship Specialty Start Date End Date Pcp, No [address] [place] [address] PCP - General 05/22/21 06/14/22 Pcp, No [address] [place] [address] PCP - General Family Medicine 06/15/22 01/15/23 Belia Abebe, AIDEN, DNP [address] [place] [address] PCP - General Internal Medicine 01/16/23 03/07/23 Claudine Harris MD [address] [place] [address] PCP - General Psychiatry 03/08/24 Pcp, No [address] [place] [address] 06/15/22 Kenton Phillips [address] [address] Community Health Worker Dental Instructor 01/24/2303/14 Ever Henriquez Community Health Worker Dental Instructor 04/12/23 04/19/23 Jaiden Smith, DMD [address] [place] [id number] Dentist 07/29/23 02/28/24 [employer] Dental Student Dental [employer]inc Furnace Charger 07/29/23 02/28/24 Yissel Kendrick, HIDE SALTER [address] [place] [address] Desktop Publisher Dental Instructor 09/14/23 03/08/24 documented as of this encounter
[2025-01-11] MEDS: AMOXICILLIN/CLAVULANATE K 875-125 MG TAB 1 TABLET PO (00:59)
[2025-01-11] MEDS: predniSONE 20 MG TABLET PO (00:59)
[2025-01-11 05:35] LABS: Influenza A QL RT-PCR Negative (Negative); Influenza B QL RT-PCR Negative (Negative); RSV RNA, RT-PCR Negative (Negative)
[2025-01-11 05:36] LABS: SARS-CoV-2 RNA PCR Negative (Negative)
[2025-01-11 06:07] VITALS: BP 122/84; PULSE 83; RESP 16; TEMP 36.9; O2SAT 100
== END 2025-01-11 06:07 | disposition home or self-care (01) ==
PROVIDERS: Emergency Provider Emergency Medicine; PCP Family Medicine
DX: J40 Bronchitis, not specified as acute or chronic (principal); Z20.822 Contact with and (suspected) exposure to COVID-19
CPT/HCPCS: 71045; 87637; 99283; A9270; J7512